=== PATIENT | male | born 1950 | race Caucasian/White ===

== ENCOUNTER 2022-01-30 11:05 | Emergency (ER) | payer MEDICARE ==
[~2022-01-30] VITALS: Ht 167.6 cm; Wt 77.1 kg
[2022-01-30] MEDS ORDERED: HYDROCODONE/APAP 5MG-325MG TAB PO ONE (11:30)
[2022-01-30] MEDS ORDERED: HYDROCODONE/APAP 5MG-325MG TAB ONE (12:29)
[2022-01-30 12:49] VITALS: BP 158/98
== END 2022-01-30 12:51 | disposition home or self-care (01) ==
LOC: FSED 11:15
DX: S62.521B Displaced fracture of distal phalanx of right thumb, initial encounter for open fracture (principal); W20.8XXA Other cause of strike by thrown, projected or falling object, initial encounter; Y99.0 Civilian activity done for income or pay
CPT/HCPCS: 99284